=== PATIENT | male | born 1990 | race Caucasian/White ===

== ENCOUNTER 2017-09-29 01:19 | Emergency (ER) | payer OTHER | END 2017-09-29 02:40 | disposition other institution (70) | LOC: ED 01:19 | DX: Z02.89 Encounter for other administrative examinations (principal) ==

== ENCOUNTER 2017-09-29 01:19 | Emergency (ER) | payer SELFPAY ==
[~2017-09-29] VITALS: Ht 190.5 cm; Wt 99.8 kg
[2017-09-29 01:27] VITALS: Ht 190.5 cm; Wt 99.8 kg
[2017-09-29 02:40] VITALS: BP 147/83
== END 2017-09-29 02:40 | disposition other institution (70) ==
LOC: ED 01:19
DX: S13.4XXA Sprain of ligaments of cervical spine, initial encounter (principal); V89.2XXA Person injured in unspecified motor-vehicle accident, traffic, initial encounter; Y93.I9 Activity, other involving external motion; Y92.89 Other specified places as the place of occurrence of the external cause; Y99.8 Other external cause status
CPT/HCPCS: 99406